=== PATIENT | male | born 1975 | race Caucasian/White ===

== ENCOUNTER 2018-06-01 23:48 | Emergency (ER) | payer SELFPAY ==
--- NOTE | 2018-06-02 00:09 | EDM.PDOC ---
ED HPI GENERAL MEDICAL PROBLEM - General Chief Complaint: General Stated Complaint: PT HAS FEVER Time Seen by Provider: 06/02/18 00:04 - History of Present Illness INITIAL COMMENTS - FREE TEXT/NARRATIVE: HISTORY AND PHYSICAL: History of present illness: The patient is a 42-year-old male with no stated medical history who is here working in the [employer] and says he has had 2 days of sinus pressure and drainage as well as a slight cough and a fever today that he had earlier but seems to have broken. He had some diarrhea today but no nausea or vomiting and has had some vague abdominal discomfort. He has not had a headache shortness of breath or chest pain and because of his work he has not been able to take much medication or stay hydrated. He did not get his influenza shot this year. He says he still smokes cigarettes but less than half a pack a day and he does not do any street drugs. He says he has diffuse body aches and generalized malaise. Review of systems: As per history of present illness and below otherwise all systems reviewed and negative. Past medical history: As per history of present illness and as reviewed below otherwise noncontributory. Surgical history: As per history of present illness and as reviewed below otherwise noncontributory. Social history: No reported history of drug or alcohol abuse. Family history: As per history of present illness and as reviewed below otherwise noncontributory. Physical exam: General: Well-developed well-nourished man who is nontoxic and vital signs are noted by me. He does have nasal quality to voice but it is not worse or muffled HEENT: Atraumatic, normocephalic, pupils reactive, negative for conjunctival pallor or scleral icterus, mucous membranes moist, throat clear of exudates but the posterior oropharynx is very injected and erythematous, uvula is midline, there is no gross cervical adenopathy or nuchal rigidity,, neck supple, nontender, trachea midline. The turbinates are mildly engorged bilaterally left greater than right and there is some sinus tenderness on palpation Lungs: Clear to auscultation, breath sounds equal bilaterally, chest nontender. Heart: S1S2, regular rate and rhythm no overt murmurs Abdomen: Soft, nondistended, nontender. NABS Pelvis: Deferred Genitourinary: Deferred. Rectal: Deferred. Extremities: Atraumatic, full range of motion. Neurovascular unremarkable. Neuro: Awake, alert, oriented. Cranial nerves II through XII unremarkable. Cerebellum unremarkable. Motor and sensory unremarkable throughout. Exam nonfocal. Diagnostics: Rapid strep influenza Therapeutics: Toradol Impression: Pharyngitis/sinusitis Definitive disposition and diagnosis as appropriate pending reevaluation and review of above. Face/Facial Pain Score (Numeric/FACES): 6 - Related Data Allergies Allergy/AdvReac Type Severity Reaction Status Date / Time No Known Allergies Allergy Verified 06/02/18 00:02 Home Meds: Home Meds . [No Known Home Meds] 06/02/18 [History] Past Medical History - Past Health History Medical/Surgical History: Denies Medical/Surgical History - Infectious Disease History Infectious Disease History: Reports: Chicken Pox Social & Family History - Tobacco Use Smoking Status *Q: Current Every Day Smoker Years of Tobacco use: 15 Packs/Tins Daily: 0.5 - Recreational Drug Use Recreational Drug Use: No ED ROS GENERAL - Review of Systems Review Of Systems: ROS reveals no pertinent complaints other than HPI. ED EXAM, GENERAL - Physical Exam Exam: See Below (See dictation) Course - Vital Signs Last Recorded V/S: Last Vital Signs Temp 36.4 C 06/02/18 00:00 Pulse 75 06/02/18 00:00 Resp 18 06/02/18 00:00 BP 127/88 06/02/18 00:00 Pulse Ox 95 06/02/18 00:00 - Orders/Labs/Meds Orders: Active Orders 24 hr Category Date Time Status CULTURE STREP A CONFIRMATION [] Stat Lab 06/02/18 00:05 Results STREP SCRN A RAPID W CULT CONF [RM] Stat Lab 06/02/18 00:05 Results Meds: Medications Discontinued Medications Generic Name Dose Route Start Last Admin Trade Name Freq PRN Reason Stop Dose Admin Ketorolac Tromethamine 60 mg 06/02/18 00:09 06/02/18 00:14 Toradol IM 06/02/18 00:10 60 mg ONETIME ONE Administration Departure - Departure Time of Disposition: 00:31 Disposition: Home, Self-Care 01 Condition: Good Clinical Impression: Sinusitis Qualifiers: Sinusitis location: unspecified location Chronicity: acute Recurrence: not specified as recurrent Qualified Code(s): J01.90 - Acute sinusitis, unspecified Pharyngitis Qualifiers: Pharyngitis/tonsillitis etiology: unspecified etiology Qualified Code(s): J02.9 - Acute pharyngitis, unspecified - Discharge Information Referrals: PCP,None [Primary Care Provider] - Forms: ED Department Discharge Additional Instructions: The following information is given to patients seen in the emergency department who are being discharged to home. This information is to outline your options for follow-up care. We provide all patients seen in our emergency department with a follow-up referral. The need for follow-up, as well as the timing and circumstances, are variable depending upon the specifics of your emergency department visit. If you don't have a primary care physician on staff, we will provide you with a referral. We always advise you to contact your personal physician following an emergency department visit to inform them of the circumstance of the visit and for follow-up with them and/or the need for any referrals to a consulting specialist. The emergency department will also refer you to a specialist when appropriate. This referral assures that you have the opportunity for followup care with a specialist. All of these measure are taken in an effort to provide you with optimal care, which includes your followup. Under all circumstances we always encourage you to contact your private physician who remains a resource for coordinating your care. When calling for followup care, please make the office aware that this follow-up is from your recent emergency room visit. If for any reason you are refused follow-up, please contact the [facility] emergency department at and ask to speak to the emergency department charge nurse. [facility] Primary care- Internal Medicine and Family [address] [address] Please use [id number] Tylenol and ibuprofen/Motrin for fevers and body aches and push hydration including Gatorade. Rest as much as possible. Take antibiotics as prescribed you have been given Augmentin from [facility]. Also purchase and use [id number] Claritin, Mercedes, or Benadryl to help dry up the fluid in your sinuses and keep your nasal passages moist with nasal spray and coolmist humidifier at sleep times. Call our clinic and schedule a follow-up appointment in the next few days for reevaluation and further care and return to ER as needed and as discussed - My Orders Last 24 Hours: My Active Orders 06/02/18 00:05 CULTURE STREP A CONFIRMATION [RM] Stat STREP SCRN A RAPID W CULT CONF [RM] Stat - Assessment/Plan Last 24 Hours: My Active Orders 06/02/18 00:05 CULTURE STREP A CONFIRMATION [RM] Stat STREP SCRN A RAPID W CULT CONF [RM] Stat
[2018-06-02] MEDS: Ketorolac 60 MG/2 ML SDV IM ONE (00:14)
== END 2018-06-02 00:39 | disposition home or self-care (01) ==
LOC: MW.ED 23:48
DX: J01.90 Acute sinusitis, unspecified (principal); J02.9 Acute pharyngitis, unspecified; F17.210 Nicotine dependence, cigarettes, uncomplicated
CPT/HCPCS: 87081; 87804; 87880-QW; 96372; 99283-25; J1885